=== PATIENT | female | born 1985 | race African-American/Black ===

== ENCOUNTER 2016-04-20 08:25 | Emergency (ER) | payer SELFPAY ==
[2016-04-20] MEDS ORDERED: Tetan/Diph/Pertus SYR(Tdap)* 0.5 ML SYR(BOOSTRIX) use SYR IM ONE (08:48)
[2016-04-20] MEDS ORDERED: Ibuprofen TAB* 600 MG PO ONE (08:49)
--- NOTE | 2016-04-20 09:11 | ED ---
Skin Complaint - HPI Summary HPI Summary: Pt here w/ Rt hand laceration prior to arrival. Was washing dishes when a glass cracked - she didn't realize it at first and continued to over her hand within the glass cup and she cut the skin over Rt 5th knuckle. Bleeding eventually controlled with pressure. Denies numbness, tingling, weakness. Not sure when she had her last tetanus imm. - History of Current Complaint Chief Complaint: EDExtremityUpper Time Seen by Provider: 04/20/16 08:41 Stated Complaint: RT HAND LAC Hx Obtained From: Patient Pain Intensity: 7 - Allergy/Home Medications Allergies/Adverse Reactions: Allergies Allergy/AdvReac Type Severity Reaction Status Date / Time No Known Allergies Allergy Verified 04/20/16 08:32 PMH/Surg Hx/FS Hx/Imm Hx Previously Healthy: Yes Endocrine/Hematology History: Denies: Hx Anticoagulant Therapy, Hx Blood Disorders, Hx Diabetes Cardiovascular History: Denies: Hx Hypertension History: Denies: Hx Renal Disease Sensory History: Denies: Hx Contacts or Glasses Opthamlomology History: Denies: Hx Contacts or Glasses Infectious Disease History: No Infectious Disease History: Denies: Traveled Outside the [place] in Last 30 Days - Family History Known Family History: Positive: Diabetes - sister - Social History Occupation: Employed Part-time - [employer] Lives: With Family - children Alcohol Use: Occasionally Alcohol Amount: Holidays primarily Hx Substance Use: No Substance Use Type: Reports: None Hx Tobacco Use: No Smoking Status (MU): Never Smoked Tobacco Review of Systems Negative: Fatigue Negative: Chest Pain Negative: Shortness Of Breath Gastrointestinal: Negative Positive: no symptoms reported Musculoskeletal: Negative Skin: Other - see HPI Neurological: Negative Psychological: Normal All Other Systems Reviewed And Are Negative: Yes Physical Exam Triage Information Reviewed: Yes Vital Signs On Initial Exam: Initial Vitals Temp Pulse Resp BP Pulse Ox 98.3 F 63 16 122/76 100 04/20/16 08:28 04/20/16 08:28 04/20/16 08:28 04/20/16 08:28 04/20/16 08:28 Vital Signs Reviewed: Yes Appearance: Positive: Well-Appearing, No Pain Distress, Obese Skin: Positive: Warm - dime sized avulsion of dermis over dorsal Rt 5th MCP joint - no active bleeding, no FB - appears clean Head/Face: Positive: Normal Head/Face Inspection Eyes: Positive: Normal, EOMI. Negative: Conjunctiva Inflammed, Discharge ENT: Positive: Hearing grossly normal, Pharynx normal - mucosa moist Respiratory/Lung Sounds: Positive: Breath Sounds Present Cardiovascular: Positive: Normal, Pulses are Symmetrical in both Upper and Lower Extremities Musculoskeletal: Positive: Normal, Strength/ROM Intact Neurological: Positive: Normal, Sensory/Motor Intact, Alert, Oriented to Person Place, Time, CN Intact II-III Psychiatric: Positive: Normal Diagnostics - Vital Signs Vital Signs Temp Pulse Resp BP Pulse Ox 04/20/16 08:28 98.3 F 63 16 122/76 100 - Laboratory Lab Statement: Any lab studies that have been ordered have been reviewed, and results considered in the medical decision making process. Course/Dx - Diagnoses Provider Diagnoses: Avulsion of skin of right hand Discharge - Discharge Plan Condition: Stable Disposition: HOME Patient Education Materials: Skin Avulsion (ED) Additional Instructions: Gently wash wound with soap and water daily - rinse well and pat dry with clean cloth then redress with antibacterial ointment and gauze. Rest, elevate, ice and may take ibuprofen with food for pain Follow-up with PCP next week for wound check - call today to schedule appointment. If you are concerned about healing, you may benefit from a plastic surgery/hand specialist consult - your PCP may refer you as needed. *If you develop redness, drainage, swelling, streaking, purulent drainage, fever , chills, seek medical treatment sooner
[2016-04-20 09:54] VITALS: BP 122/67
== END 2016-04-20 09:15 | disposition home or self-care (01) ==
LOC: ED 08:25
DX: S61.411A Laceration without foreign body of right hand, initial encounter (principal); W25.XXXA Contact with sharp glass, initial encounter; Y93.9 Activity, unspecified; Y92.9 Unspecified place or not applicable; Y99.9 Unspecified external cause status
CPT/HCPCS: 90471; 90715; 99283; A9270-GY

== ENCOUNTER 2016-04-22 16:58 | Emergency (ER) | payer SELFPAY ==
[2016-04-22 17:35] VITALS: BP 126/79
--- NOTE | 2016-04-22 17:59 | UC ---
Skin Complaint HPI - HPI Summary HPI Summary: 30 year old female with complaints of right hand wound. She received a skin avulsion to her right 5th dorsal mcp area 04/20/16. SHe has been taking care of the wound but was supposed to go to work this evening and does not feel comfortable with her job responsibilities of [employer] with the open wound she has to her hand. It is still causing her pain to move her hand and she is right handed. she is unsure if she can pull a glove over her hand while keeping her dressing intact. She would like a work note for the weekend. She denies fever, chills, increased redness or pain. - History of Current Complaint Chief Complaint: UCWounds Time Seen by Provider: 04/22/16 17:43 Stated Complaint: repaired lac wants work note Hx Obtained From: Patient Hx Last Menstrual Period: 04/15/16 ?: No Onset/Duration: Sudden Onset, Lasting Days - 2, Still Present Timing: Intermittent Episodes Lasting: - with movement Onset Severity: Severe Current Severity: Mild Location: Discrete - right hand Character: Pain Aggravating: Touch Alleviating: Nothing Associated Signs & Symptoms: Positive: Tenderness - mild to moderate. Negative : Fever, Chills, Drainage, Bruising Related History: Other: - cut her hand on a broken glass - Allergy/Home Medications Allergies/Adverse Reactions: Allergies Allergy/AdvReac Type Severity Reaction Status Date / Time No Known Allergies Allergy Verified 04/22/16 17:35 Home Medications: Home Medications NK [No Home Medications Reported] 04/22/16 [History Confirmed 04/22/16] Review of Systems Constitutional: Negative Skin: Other - cut to right hand Eyes: Negative ENT: Negative Respiratory: Negative Cardiovascular: Negative Gastrointestinal: Negative Genitourinary: Negative Motor: Decreased ROM - due to acute pain of wound Neurovascular: Negative Musculoskeletal: Negative Neurological: Negative Psychological: Negative All Other Systems Reviewed And Are Negative: Yes PMH/Surg Hx/FS Hx/Imm Hx Previously Healthy: Yes Endocrine History Of: Denies: Diabetes Cardiovascular History Of: Denies: Hypertension GI/ History Of: Denies: Renal Disease Other History Of: Negative For: Anticoagulant Therapy - Surgical History Surgical History: None - Family History Known Family History: Positive: Hypertension - sister, Diabetes - sister - Social History Occupation: Employed Full-time Lives: With Family Alcohol Use: Occasionally Alcohol Amount: Holidays primarily Substance Use Type: None Smoking Status (MU): Never Smoked Tobacco - Immunization History Most Recent Tetanus Shot: 04/20/16 Physical Exam Triage Information Reviewed: Yes Appearance: Well-Appearing, Well-Nourished, Pain Distress - while taking off the dressing to her wound Vital Signs: Initial Vital Signs Temp 97.6 F 04/22/16 17:32 Pulse 62 04/22/16 17:32 Resp 16 04/22/16 17:32 BP 126/79 04/22/16 17:32 Pulse Ox 98 04/22/16 17:32 Vital Signs Reviewed: Yes Eyes: Positive: Conjunctiva Clear. Negative: Discharge ENT: Positive: Hearing grossly normal. 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 The wound is granulating and has pink and white tissue. NO bleeding noted. NO drainaged noted. NO swelling or erythema noted. ROM limited at Right 5th mcp joint due to pain from wound. Negative: rashes Course/Dx - Course Course Of Treatment: Dressing change. Work release for 2 additional days. She is encouraged to follow up with her primary care - Diagnoses Provider Diagnoses: avulsion of skin dorsal right hand Discharge - Discharge Plan Condition: Stable Disposition: HOME Patient Education Materials: Skin Avulsion (ED) Forms: *Work Release Referrals: No Primary Care Phys,NOPCP [Primary Care Provider] - [facility] [place] [facility] [Outside]
[2016-04-22] MEDS ORDERED: Ibuprofen TAB* 600 MG PO ONE (18:14)
== END 2016-04-22 18:19 | disposition home or self-care (01) ==
LOC: UCEAST 16:58
DX: S61.401A Unspecified open wound of right hand, initial encounter (principal); X58.XXXA Exposure to other specified factors, initial encounter; Y92.9 Unspecified place or not applicable
CPT/HCPCS: 99212; A9270-GY; G0463

== ENCOUNTER 2017-01-29 13:15 | Emergency (ER) | payer SELFPAY ==
[2017-01-29 13:42] VITALS: BP 112/57
[2017-01-29] MEDS ORDERED: Ondansetron ODT TAB* 4 MG PO ONE ×2 (13:57→14:10)
[2017-01-29] MEDS ORDERED: Ketorolac INJ* 30 MG/ML 1 ML VIAL IM ONE (13:57)
--- NOTE | 2017-01-29 14:07 | UC ---
Headache HPI - HPI Summary HPI Summary: Started feeling frontal head pain and pressure 3 days ago. Improved with mucinex 2 days ago, lots of rest yesterday, but today feels the worst. Sx are exacerbated by bending over and coughing. Pt denies ST, chest congestion, or sneezing/head congestion aside from forehead pressure. No fever or visual changes, no n/v/d. Has school-aged kids at home. - History Of Current Complaint Chief Complaint: UCHeadache Stated Complaint: HEADACHE Time Seen by Provider: 01/29/17 13:43 Hx Obtained From: Patient Hx Last Menstrual Period: 01/03/17 ?: No Onset/Duration: Gradual Onset, Lasting Days Onset Of Symptoms: Gradual Currently Pain Is: Severe Timing: Constant Character: Dull, Pressure Location of Headache: Frontal Aggravating Factor(s): Exertion, Position Change, Other - cough, sneeze Allevating Factor(s): Rest Associated Signs And Symptoms: Negative: Seizure, Nausea, Vomiting, Fever, Decreased LOC, Visual Changes - Allergies/Home Medications Allergies/Adverse Reactions: Allergies Allergy/AdvReac Type Severity Reaction Status Date / Time No Known Allergies Allergy Verified 01/29/17 13:37 Home Medications: Home Medications Control 1 tab PO DAILY 01/29/17 [History] PMH/Surg Hx/FS Hx/Imm Hx Previously Healthy: Yes Other History Of: Negative For: Anticoagulant Therapy - Surgical History Surgical History: None - Family History Known Family History: Positive: Hypertension - sister, Diabetes - sister - Social History Occupation: Employed Part-time Lives: With Family Alcohol Use: Occasionally Alcohol Amount: Holidays primarily Substance Use Type: None Smoking Status (MU): Never Smoked Tobacco - Immunization History Most Recent Tetanus Shot: 04/20/16 Review of Systems Constitutional: Negative Skin: Negative Eyes: Negative ENT: Negative Respiratory: Negative Cardiovascular: Negative Gastrointestinal: Negative Genitourinary: Negative Motor: Negative Neurovascular: Negative Musculoskeletal: Negative Neurological: Headache Psychological: Negative Is Patient Immunocompromised?: No All Other Systems Reviewed And Are Negative: Yes Physical Exam Triage Information Reviewed: Yes Appearance: Well-Appearing, No Pain Distress, Well-Nourished Vital Signs: Initial Vital Signs Temp 97.8 F 01/29/17 13:38 Pulse 77 01/29/17 13:38 Resp 16 01/29/17 13:38 BP 112/57 01/29/17 13:38 Pulse Ox 100 01/29/17 13:38 Vital Signs Reviewed: Yes Eye Exam: Normal, Other - PERRL, EOM-I Eyes: Positive: Conjunctiva Clear ENT Exam: Normal ENT: Positive: Normal ENT inspection, Hearing grossly normal, Pharynx normal, TMs normal Dental Exam: Normal Neck exam: Normal Neck: Positive: Supple, Nontender, No Lymphadenopathy Respiratory Exam: Normal Respiratory: Positive: Chest non-tender, Lungs clear, Normal breath sounds, No respiratory distress, No accessory muscle use Cardiovascular Exam: Normal Cardiovascular: Positive: RRR, No Murmur Musculoskeletal Exam: Normal Musculoskeletal: Positive: Strength Intact, ROM Intact Neurological: Positive: Alert, Muscle Tone Normal Psychological Exam: Normal Skin Exam: Normal Headache Course/Dx - Differential Dx/Diagnosis Provider Diagnoses: Tension BETTS Discharge - Discharge Plan Condition: Stable Disposition: HOME Prescriptions: Ketorolac TAB * [Toradol TAB *] 10 mg PO TID #4 tab Ondansetron TAB* [Zofran 4 MG Tab*] 4 mg PO Q6H PRN #10 tab PRN Reason: Nausea Patient Education Materials: Tension Headache (ED) Forms: *Work Release Referrals: No Primary Care Phys,NOPCP [Primary Care Provider] - Additional Instructions: As we discussed, either the recent weather change or a mild passing virus can cause severe headaches like this. If you continue to have pain and develop fever , trouble breathing, visual changes, prolonged vomiting, or other severe symptoms, please go to the emergency department.
== END 2017-01-29 14:15 | disposition home or self-care (01) ==
LOC: UCEAST 13:15
DX: G44.209 Tension-type headache, unspecified, not intractable (principal)
CPT/HCPCS: 96372; 99212; A9270-GY; G0463; J1885

== ENCOUNTER 2018-02-13 19:28 | Emergency (ER) | payer OTHER ==
[2018-02-13 19:42] VITALS: BP 106/74
[2018-02-13] MEDS ORDERED: Ibuprofen TAB* 600 MG PO ONE (19:48)
--- NOTE | 2018-02-13 19:51 | UC ---
Knee Pain HPI - HPI Summary HPI Summary: 32 y/o female presents to the urgent care c/o left knee pain s/p injury while playing basketball today around 1830pm. pt reports she jumped and when she landed on her feet she heard a popping sound on her left knee. Pt was able to bear weight w/ limping. Pain is 9/10 sharp w/ movement and walking and 7/10 at rest. Pt applied ice. Pt denies numbness or tingling sensation over the left extremity, calf pain, SOB, chest pain, abdominal pain, N/v/D. - History of Current Complaint Chief Complaint: UCLowerExtremity Stated Complaint: KNEE INJURY Time Seen by Provider: 02/13/18 19:50 Hx Obtained From: Patient Hx Last Menstrual Period: 02/06/18 ?: No Onset/Duration: Gradual Onset, Lasting Hours - 2hrs Severity Initially: Moderate Severity Currently: Moderate Pain Intensity: 9 - walking Pain Scale Used: 0-10 Numeric Character: Sharp Aggravating Factor(s): Movement, Prolonged Standing Alleviating Factor(s): Rest, Cold, OTC Meds Associated Signs And Symptoms: Positive: Negative. Negative: Swelling, Redness , Bruising, Fever, Weakness, Numbness, Tingling Able to Bear Weight: Yes - Risk Factors Septic Arthritis Risk Factor: Negative Gout Risk Factor: Negative - Allergies/Home Medications Allergies/Adverse Reactions: Allergies Allergy/AdvReac Type Severity Reaction Status Date / Time No Known Allergies Allergy Verified 02/13/18 19:42 PMH/Surg Hx/FS Hx/Imm Hx Previously Healthy: Yes - Pt denies PMHX Other History Of: Negative For: Anticoagulant Therapy - Surgical History Surgical History: None - Family History Known Family History: Positive: Hypertension - sister, Diabetes - sister - Social History Occupation: Employed Full-time Lives: With Family Alcohol Use: Occasionally Alcohol Amount: Holidays primarily Substance Use Type: None Smoking Status (MU): Never Smoked Tobacco - Immunization History Most Recent Tetanus Shot: 04/20/16 Review of Systems Constitutional: Negative Skin: Negative Eyes: Negative ENT: Negative Respiratory: Negative Cardiovascular: Negative Gastrointestinal: Negative Genitourinary: Negative Motor: Negative Neurovascular: Negative Musculoskeletal: Decreased ROM - left knee, Other: - left knee pain s/p injury while playing soccer Neurological: Negative Psychological: Negative Is Patient Immunocompromised?: No All Other Systems Reviewed And Are Negative: Yes Physical Exam - Summary Physical Exam Summary: Vital Signs Reviewed: Yes General: well developed, well nourished female sitting in the examining table w/ o any apparent distress Eyes: Positive: Conjunctiva Clear - PERRLA, EOMI, fundi grossly normal ENT: Positive: Normal ENT inspection, Hearing grossly normal, Pharynx normal, TMs normal Neck: Positive: Supple, Nontender, No Lymphadenopathy Respiratory: Positive: Chest nontender, Lungs clear, Normal breath sounds, No respiratory distress Cardiovascular: Positive: RRR, No Murmur, Pulses Normal, Brisk Capillary Refill Abdomen Description: Positive: Nontender, No Organomegaly, Soft. Negative: CVA Tenderness (R), CVA Tenderness (L) Bowel Sounds: Positive: Present Musculoskeletal: Positive: Strength Intact, No Edema, LF Knee: Pt is able to bear weight and ambulate with limping. No surface trauma, soft tissue swelling, or obvious effusion. No overlying erythema or warmth. The L knee is without obvious asymmetry or deformity when compared with the R knee. Decreased ROM of LF knee due to pain. No tenderness to palpation of the patella, no effusion or ballottement. No tenderness over the infrapatellar tendon. Point tenderness over the medial joint line, No tenderness over the lateral tibial plateaus. No tenderness over the proximal fibular head, No tenderness, fullness or mass of the popliteal fossa. No quadriceps tenderness. No laxity of the ACL. PCL, MCL, or LCL. no collateral ligament laxity to valgus or varus stress. Negative Lucy/Drawer sign. Negative Giacomo. Distal motor and neurovascular status intact. Neurological Exam: Normal Psychological Exam: Normal Skin Exam: Normal Triage Information Reviewed: Yes Vital Signs: Initial Vital Signs Temp 97.8 F 02/13/18 19:38 Pulse 76 02/13/18 19:38 Resp 16 02/13/18 19:38 BP 106/74 02/13/18 19:38 Pulse Ox 100 02/13/18 19:38 Knee Pain Course/Dx - Course Course Of Treatment: 32 y/o female presents to the urgent care c/o left knee pain s/p injury while playing basketball today around 1830pm. pt reports she jumped and when she landed on her feet she heard a popping sound on her left knee. Pt was able to bear weight w/ limping. Pain is 9/10 sharp w/ movement and walking and 7/10 at rest. Pt applied ice. Pt denies numbness or tingling sensation over the left extremity, calf pain, SOB, chest pain, abdominal pain, N /v/D. Hx obtained. LF knee X-ray ordered. Impression:No acute osseous injury observed. Pt explained final radiology reading will be tomorrow. Pt probably w/ probably a left knee sprain. Pt's knee immobilized w/ a knee immobilizer. and Advised to use crutches for 1 week to avoid weaith bearing until she sees Orthopedic DR Molina for further evaluation and treatment. However she declined to use the crutches. Advised RICE. Strongly advised to avoid strenuous exercise or standing for long period of time. Pt stated she can't miss training at work. Pt strongly recommended not to do any weight bearing until she sees Orthopedic DR Molina who can clear her to return to work. D/c instructions explained. PT understood and agreed with D/C instructions. - Differential Dx/Diagnosis Differential Diagnosis/HQI/PQRI: Contusion, Dislocation, Fracture (Closed), Sprain, Strain, Tendonitis Provider Diagnoses: 1-Acute left knee pain s/p injury. 2-left knee sprain Discharge - Sign-Out/Discharge Documenting (check all that apply): Patient Departure - D/c home All imaging exams completed and their final reports reviewed: No - Discharge Plan Condition: Stable Disposition: HOME Prescriptions: Ibuprofen TAB* [Motrin TAB* 800 MG] 800 mg PO Q6H PRN #30 tab PRN Reason: Pain Patient Education Materials: Knee Sprain (ED) Forms: *Work Release Referrals: [facility] [place] [facility] [Outside] - 1 Week Lamont Molina MD [Medical Doctor] - 2 Days Additional Instructions: 1-Please take medications as directed to alleviate pain and swelling. 2-Please apply ice, keep your knee immobilized with the splint. Avoid strenuous exercise or weight bearing w/ crutches 3- Please f/u with Orthopedic Dr Molina in 2-3 days for further evaluation and treatment. - Billing Disposition and Condition Condition: STABLE Disposition: Home
--- NOTE | 2018-02-14 07:59 | RAD ---
Indication: Left knee injury. 4 views of left knee demonstrates no fracture or dislocation. No other bone or joint abnormality is identified. IMPRESSION: No fracture of the left knee is noted. R0
== END 2018-02-13 21:02 | disposition home or self-care (01) ==
LOC: UCEAST 19:28
DX: S83.92XA Sprain of unspecified site of left knee, initial encounter (principal); X58.XXXA Exposure to other specified factors, initial encounter; Y93.67 Activity, basketball; Y92.310 Basketball court as the place of occurrence of the external cause
CPT/HCPCS: 99213; A9270-GY; G0463

== ENCOUNTER 2018-05-10 05:39 | Day surgery (SDC) | payer OTHER ==
--- NOTE | 2018-05-07 14:14 | HP ---
H&P (Free Text) History and Physical: [facility] PENELOPE MOLINA MD [address] [place] [id number] [phone] HISTORY & PHYSICAL Date of Visit: May 02, 2018 Patient Name: Farzaneh Mckinney : 1985 Gender: female Age: 32 years Primary Care Physician: Patient'S Choice Reason for Visit: L Knee- H & P CC: Left knee pain. 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 The patient injured her knee while playing basketball with children at work on February 13. She underwent an MRI on February 25, 2018, which showed a complete versus high grade partial tear of the ACL ligament. She has elected to undergo arthroscopic ACL reconstruction with hamstring allograft with Dr. Molina on 05/10/2018. PAST MEDICAL HISTORY: None. PAST SURGICAL HISTORY: D&C. CURRENT MEDICATIONS: None. ALLERGIES: No known drug allergies. FAMILY HISTORY: Positive for diabetes. SOCIAL HISTORY: Nonsmoker. Rare alcohol intake. Lives alone with her 2 children, ages 10 and 13. Enjoys exercise. ROS: Negative for headache, shortness of breath, chest pain, heart palpitations , abdominal pain, numbness and tingling, other muscles aches or pain, difficulty with wound healing, bleeding disorders blood clots, diabetes or thyroid disease, cough, COPD, asthma, weight gain or loss. PHYSICAL EXAM: Vitals: Ht: 64" Wt: 200lb BP: 115/72 Resp: 18 Pain Level: 3 BMI: 34.3 GENERAL: Well appearing, no acute distress. Alert and oriented, appropriate mood and affect. Nonantalgic gait. CARDIAC: Regular rate and rhythm. No murmurs, gallops or rubs. RESPIRATORY: Clear to auscultation bilaterally. No crackles, rhonchi, or wheezes. ABDOMEN: Soft, nontender, nondistended. No CVA tenderness bilaterally. HEENT: Normocephalic, atraumatic. Trachea midline. LEFT LOWER EXTREMITY: Left knee with no effusion. No bruising, open wounds or sores. Passive range of motion -2 to 145 degrees, similar to right side. Mild anterior drawer. Mild Lucy. Negative Giacomo's. Negative laxity with valgus or varus stresses. No joint line tenderness bilaterally. IMAGING: MRI on February 25, 2018, which showed a complete versus high grade partial tear of the ACL ligament. ASSESSMENT: ACL tear, left knee. PLAN: 1. Arthroscopic ACL reconstruction with hamstring autograft on 05/10/2018. 2. As the patient is healthy, no other history and physical examination is required. 3. The patient will recover at home. 4. The patient has physical therapy currently at [facility] and will continue there postoperatively. Meds Prior to Visit: No Active Medications Allergies: No Known Drug Allergy Problem List: Date: 05/02/2018 Was the patient queried about smoking behavior? Yes No Does the patient currently smoke? Smoking: Patient has never smoked. Vitals: Ht: 64" Wt: 200lb BP: 115/72 Resp: 18 Pain Level: 3 BMI: 34.3
[~2018-05-10 05:39] MED LIST: Buffered Lidocaine 1% SYRIN* 1 ML/SYRINGE INTRADERM ONE
[2018-05-10] MEDS ORDERED: Famotidine IV* 10 MG/ML 2 ML (20 mg) ONE (05:58)
[2018-05-10] MEDS ORDERED: Buffered Lidocaine 1% SYRIN* 1 ML/SYRINGE INTRADERM ONE (05:58)
[2018-05-10] MEDS ORDERED: Dexamethasone IV* 4 MG/ML 1 ML (4 MG) ONE (05:58)
[2018-05-10] MEDS ORDERED: ceFAZolin 2 GM PREMIX in ORs 2 GM/50 ML BAG IVPB ONE (05:58)
[2018-05-10] MEDS ORDERED: Famotidine IV* 10 MG/ML 2 ML (20 mg) IV ONE (06:00)
[2018-05-10] MEDS ORDERED: Lactated Ringers 1000 ML Bag* 1,000 ML IV SCH (06:00)
[2018-05-10] MEDS ORDERED: Dexamethasone IV* 4 MG/ML 1 ML (4 MG) IV SLOW PU ONE (06:00)
[2018-05-10] MEDS ORDERED: EPINEPHRINE 1 MG/ML 1 ML VIAL ONE (06:53)
[2018-05-10] MEDS ORDERED: Bupivacaine 0.5% W/EPI SDV* 30 ML VIAL ONE (06:53)
[2018-05-10] MEDS ORDERED: Midazolam* 1 MG/ML 5 ML VIAL (5 MG) ONE (07:10)
[2018-05-10] MEDS ORDERED: fentaNYL* 50 MCG/ML 5 ML VIAL (250 MCG VIAL) ONE (07:10)
[2018-05-10] MEDS ORDERED: Ondansetron INJ* 2 MG/ML VIAL ONE ×2 (07:10→14:07)
[2018-05-10] MEDS ORDERED: Ketorolac INJ* 30 MG/ML 1 ML VIAL ONE (07:10)
[2018-05-10] MEDS ORDERED: Propofol* 10 MG/ML 20 ML BTL ONE (07:10)
[2018-05-10] MEDS ORDERED: Lidocaine 2% PF * 5 ML VIAL ONE (07:10)
[2018-05-10] MEDS ORDERED: Atracurium* 10 MG/ML 10 ML VIAL ONE (07:10)
[2018-05-10] MEDS ORDERED: fentaNYL* 50 MCG/ML 2 ML VIAL (100 MCG VIAL) ONE ×4 (07:54→11:54)
[2018-05-10] MEDS ORDERED: EPHEDrine (Pressors)* 50 MG/ML VIAL ONE (07:57)
[2018-05-10] MEDS ORDERED: Ondansetron INJ* 2 MG/ML VIAL IV PRN (08:22)
[2018-05-10] MEDS ORDERED: Scopolamine 1.5 mg* PATCH TRANSDERM PRN (08:22)
[2018-05-10] MEDS ORDERED: Naloxone* 0.4 MG/ML 1 ML VIAL IV PRN (08:22)
[2018-05-10] MEDS ORDERED: DiMENhydriNATE IV* 50 MG/ML VIAL IV PUSH PRN (08:22)
[2018-05-10] MEDS ORDERED: oxyCODONE/Acetamin 5/325 MG* TAB PO PRN (08:22)
[2018-05-10] MEDS ORDERED: Mineral Oil Sterile, TOPICAL* 25 ML BTL ONE (09:17)
[2018-05-10] MEDS: fentaNYL* 50 MCG/ML 2 ML VIAL (100 MCG VIAL) IV PRN ×2 (11:56→12:22)
[2018-05-10] MEDS ORDERED: oxyCODONE/Acetamin 5/325 MG* TAB ONE ×2 (13:06→13:36)
[2018-05-10] MEDS ORDERED: HYDROmorphone INJ1* 1 MG/ML SYRINGE ONE (13:12)
[2018-05-10] MEDS: HYDROmorphone INJ1* 1 MG/ML SYRINGE IV PRN ×5 (13:13→13:35)
[2018-05-10 13:52] VITALS: BP 130/76
[2018-05-10] MEDS ORDERED: Scopolamine 1.5 mg* PATCH ONE (14:07)
[2018-05-10] MEDS ORDERED: DiMENhydriNATE IV* 50 MG/ML VIAL ONE (15:44)
--- NOTE | 2018-05-12 23:47 | OP ---
DATE OF OPERATION: 05/10/18 - [facility] DATE OF : 89 SURGEON: Lamont Molina MD ASSISTANTS: 1. GAYLA Eaton 2. Julissa Felton. Physician post production assistant was required for assistance with positioning, retraction, instrumentation, knee manipulation, and closure. ANESTHESIOLOGIST: Dr. Chapito Scott. ANESTHESIA: General anesthesia, local anesthesia with 30 cc of Marcaine, 0.5% with epinephrine. PRE-OP DIAGNOSIS: Left knee anterior cruciate ligament tear. POST-OP DIAGNOSIS: Left knee anterior cruciate ligament tear. OPERATIVE PROCEDURE: Arthroscopic left knee anterior cruciate ligament reconstruction with hamstring autograft and allograft. ANTIBIOTICS: 2 g Ancef IV. IV FLUIDS: See anesthesia note. TOURNIQUET TIME: 120 minutes at 300 mmHg. WVDI-BR-GBNV TIME: 169 minutes. ARTHROSCOPY FLUID UTILIZED: Unknown. RADIATION EXPOSURE: A mini C-arm was utilized for several radiographs. SPECIMEN: None. IMPLANTS: One hamstring allograft was utilized, a semitendinosus tendon. A Mitek RIGIDLOOP suspensory fixation was used on the femur. A Synthes large fragment 4.5 mm fully-threaded screw and washer were used as fixation on the tibia. The graft utilized combined the gracilis and semitendinosus of the patient as well as semitendinosus from a cadaver. COMPLICATIONS: None. ESTIMATED BLOOD LOSS: Minimal. 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 MRI showed high-grade ACL injury and the patient opted for ACL reconstruction. I spoke to the patient about the universe of different graft options. She chose hamstring autograft. I spoke to the patient about how I would have allograft available as backup as sometimes especially in woman, they do not have sufficient volume of autograft to make a good graft with the Hamstrings. The patient was fine with that. I discussed risks and potentials complications of surgery as well as postoperative recovery and limitations. DESCRIPTION OF PROCEDURE: Preoperative written consent was signed. Operative extremity was marked in preoperative holding. The patient was taken back to the operating room and placed supine on the operating room table. Tourniquet was placed high on the left proximal thigh. A collapsible lateral post was placed along the table. The patient was sedated and intubated. Left lower extremity was prepped and draped. Surgical time-out was performed. Esmarch was applied and tourniquet was elevated to 300 mmHg. I established a left knee anterolateral knee arthroscopy portal. I started by diagnostic arthroscopy. There was some inflamed tissue anteriorly, but no articular cartilage damage in the patellofemoral compartment. Medial and lateral compartment showed no articular cartilage or meniscus injury. Evaluation of the intracondylar notch demonstrated a complete or nearly complete tear of the ACL proximally. The remnant of the ACL had scarred down to the PCL more inferiorly. I placed the [facility] knee positioning system on the table and removed the lateral post. This was to prepare for the hamstring tendon harvest. I made a longitudinal skin incision over the anteromedial proximal lower leg. I dissected down to the sartorius fascia. I incised this parallel to the gracilis and semitendinosus tendons that I had palpated prior to incising the sartorius fascia. I next freed up all of the connections, fibrous using blunt safe dissection with my fingers to the two tendons. I next used a tendon stripper to remove these tendons. I examined the gracilis and semitendinosus tendons on the back table. Both were rather small in volume. I dropped a tourniquet on the patient's leg. I prepared the grafts that were approximately 200 mm long so that there would be 100 mm long folded over. I whipstitched using #2 FiberWire and #2 Orthocord along the distal 3 cm of each end of each tendon. After the grafts have been prepped, I incised them. I incised these grafts to be appropriate for a 7.5 tunnel or maybe even a 7 tunnel. As there is literature that supports the advantage of size 8 and above grafts, I made the decision to add some allograft tissue. I had the allograft that was in the room sawed. I raised the tourniquet to expecting to do more work in the knee but found that the allograft tissue was almost immediately ready to be prepped and so I went immediately back to the back table. I prepped this semitendinosus allograft in the same manner. Putting all three tendons together, I measured the graft to be appropriate for size 11 mm tunnels. I placed multiple running stitches using Vicryl 2-0 suture to hold the three strands of tendon, folded over, in place after they had been looped through the RIGIDLOOP system. I held this graft on the back table. I next returned to the knee. I re-elevated the tourniquet. I debrided the intracondylar notch, performed notchplasty. Using my standard anatomic landmarks, I then drilled a 11 mm tunnel. This was in excellent position within a millimeter or less of the back wall, posterior wall of the femur. I drilled this tunnel with the knee hyperflexed. I next returned the knee to 90 degrees of flexion and using a tibial ACL guide set at 55 degrees, I placed a pin and then drilled in 11 mm tibial tunnel. I liked my tunnel positions. I passed a passing suture. I then placed my graft. I had premarked the graft and then went to flip my femoral button. I flipped the button. I brought mini C-arm in to confirm that the button was flipped close to the cortex of the femur rather than superficial to the iliotibial band, which was of concern and why we obtained radiographs. It was closed to right directly on the bone. I should note that I could also visualize the undersurface of the metal anchor through the aperture of the bone while viewing from inside the knee even before and after I obtained radiographs. I next pulled the graft up into the femoral tunnel using the white suture. My graft length was excellent. The tendons just came out of the distal end of the tibial tunnel. They filled the tunnel nicely. I decided to fix distally with the screw and washer. With the knee in full extension and a posterior drawer applied, I tightened each one of my three strands around a post and washer and tied a knot. It should be noted that I placed a 36 mm x 4.5 mm screw after having drilled it. I used mini C-arm to confirm the appropriate length of this screw. After having tied all these knots with the sutures, I then again pulled on the sutures with another posterior drawer maneuver and tightened the screw and washer all the way down to the tibial cortex. I examined the knee. No laxity whatsoever at the ACL. Very happy with the result. I stuck my arthroscope within the knee and confirmed excellent size and positioning of the ACL graft. I closed the distal incision with deep and superficial buried simple stitches using Vicryl 2-0 suture. The long distal incision was closed with a subcuticular stitch using Monocryl 4-0 suture in a running fashion. Mastisol and then Steri-Strips to the distal incision. The arthroscopic skin incisions were closed with figure-of- eight and 12 stitches using nylon and 3-0 sutures. The tourniquet had been dropped at 120 minutes. Local anesthetic was applied into the subcutaneous tissues about the skin incision. Xeroform, 4x4s, ABDs, sterile Webril, MISTY bandage from foot to proximal thigh. Cooling unit. Knee brace locked in extension. DISPOSITION: The patient was awakened, extubated, and brought to the PACU. Wound care instructions provided. The patient was written prescriptions for Percocet p.r.n. pain, Keflex for 3 days and aspirin x2 weeks. She will follow up with me in clinic 10 to 14 days postoperative. She will begin physical therapy immediately and she already has a PT appointment. [id number]/CPS #: [id number] MTDD
== END 2018-05-10 16:25 | disposition home or self-care (01) ==
LOC: OR 05:39
PROVIDERS: ATTEND Orthopaedic Surgery
DX: S83.512A Sprain of anterior cruciate ligament of left knee, initial encounter (principal); X50.0XXA Overexertion from strenuous movement or load, initial encounter; Y93.89 Activity, other specified; Y92.158 Other place in reform school as the place of occurrence of the external cause; Y99.0 Civilian activity done for income or pay
CPT/HCPCS: 81025; A9270-GY; C1713; C1776; J0690; J1100; J1170; J1240; J1885; J2250; J2405; J2704; J3010

== ENCOUNTER 2018-07-31 08:22 | Emergency (ER) | payer OTHER ==
[2018-07-31 08:35] VITALS: BP 110/76
--- NOTE | 2018-07-31 09:02 | UC ---
General HPI - HPI Summary HPI Summary: Started with a sore throat yesterday. THen began with cough and congestion. TOok NyQuil last night that did help with the cough. No fever. No rash. No N/ V/D. No CP or SOB. Out on workers comp currently. meds: Reviewed No fever - History of Current Complaint Chief Complaint: UCGeneralIllness Stated Complaint: SORE THROAT Time Seen by Provider: 07/31/18 08:56 Hx Last Menstrual Period: July 08 Pain Intensity: 8 - Allergy/Home Medications Allergies/Adverse Reactions: Allergies Allergy/AdvReac Type Severity Reaction Status Date / Time No Known Allergies Allergy Verified 07/31/18 08:35 Home Medications: Home Medications Dm/Acetaminophen/Doxylamine [Night Cold-Flu Relief Liq Gel] 1 dose PO BEDTIME PRN 07/31/18 [History Confirmed 07/31/18] PMH/Surg Hx/FS Hx/Imm Hx Previously Healthy: Yes Other History Of: Negative For: Anticoagulant Therapy - Surgical History Surgical History: Yes Surgery Procedure, Year, and Place: D&C. left ACL repair Apr 2018 - Family History Known Family History: Positive: Hypertension - sister, Diabetes - sister - Social History Alcohol Use: Occasionally Alcohol Amount: Holidays primarily Substance Use Type: None Smoking Status (MU): Never Smoked Tobacco - Immunization History Most Recent Tetanus Shot: 04/20/16 Review of Systems All Other Systems Reviewed And Are Negative: Yes Constitutional: Positive: Negative ENT: Positive: Sore Throat, Nasal Discharge Respiratory: Positive: Cough Physical Exam Triage Information Reviewed: Yes Appearance: Well-Appearing Vital Signs: Initial Vital Signs Temp 98.7 F 07/31/18 08:30 Pulse 83 07/31/18 08:30 Resp 14 07/31/18 08:30 BP 110/76 07/31/18 08:30 Pulse Ox 98 07/31/18 08:30 Eyes: Positive: Conjunctiva Clear ENT: Positive: Pharyngeal erythema, TMs normal, Tonsillar swelling Neck: Positive: Supple, Tenderness @ - anterior cervical chain Respiratory: Positive: Chest non-tender, Normal breath sounds Cardiovascular: Positive: RRR, No Murmur Course/Dx - Course Course Of Treatment: This is a 32 yr old with sore throat and URI symptoms Rapid strep: Positive Plan Start Amoxicillin as prescribed Continue to drink plenty of fluids Can use ibuprofen as needed for pain/fever If symptoms persist or worsen, recommend follow up with PCP or return to urgent care - Diagnoses Provider Diagnosis: Pharyngitis due to group A beta hemolytic Streptococci Discharge - Sign-Out/Discharge Documenting (check all that apply): Patient Departure All imaging exams completed and their final reports reviewed: No Studies - Discharge Plan Condition: Good Disposition: HOME Prescriptions: Amoxicillin PO (*) [Amoxicillin 500 MG CAP*] 500 mg PO Q12H #20 cap Patient Education Materials: Strep Throat (ED) Referrals: No Primary Care Phys,NOPCP [Primary Care Provider] - Additional Instructions: Start Amoxicillin as prescribed Continue to drink plenty of fluids Can use ibuprofen as needed for pain/fever If symptoms persist or worsen, recommend follow up with PCP or return to urgent care - Billing Disposition and Condition Condition: GOOD Disposition: Home
== END 2018-07-31 09:19 | disposition home or self-care (01) ==
LOC: UCEAST 08:22
DX: J02.0 Streptococcal pharyngitis (principal); R05 Cough; J34.89 Other specified disorders of nose and nasal sinuses
CPT/HCPCS: 87651; 99212; G0463

== ENCOUNTER 2019-05-26 09:22 | Emergency (ER) | payer OTHER ==
--- OUTSIDE RECORDS SUMMARY | 2019-05-26 09:34 | XMS REPORT | Continuity of Care Document ---
:1985 Author Organization [facility] Address [address] [place] [address] Phone Care Team Providers Name Role Phone Mini Huitron NP Unavailable Unavailable Allergies, Adverse Reactions, Alerts Substance Reaction Status No Known Allergies Active Medications Medication Instructions Dosage Effective Dates Status Comments (start - stop) azithromycin 500 mg 2 tabs po x 1 for - Active tablet infection metronidazole 500 mg 1 tab po bid x 7d - No Longer tablet (#14) Active Problems Condition Effective Dates (start - Clinical Status Comments stop) Encounter for surveillance of contraceptive pills Encntr screen for infections w sexl mode of transmiss Human immunodeficiency virus [HIV] - counseling Encounter for screening for human - immunodeficiency virus Acute vaginitis Encntr screen for infections w sexl mode of transmiss Acute vaginitis Encounter for screening for human - immunodeficiency virus Human immunodeficiency virus [HIV] - counseling Encounter for test, result negative Encounter for test, result negative Encounter for initial prescription of contraceptive pills Encntr screen for infections w sexl mode of transmiss Acute vaginitis Encounter for oth general cnsl and advice on contraception Encntr screen for infections w sexl mode of transmiss Candidiasis of vulva and vagina Encntr screen for infections w sexl mode of transmiss Encounter for prescription of emergency contraception Encounter for initial prescription of contraceptive pills Acute vaginitis Anemia, unspecified Encntr screen for dis of the bld/bld-form org/immun mechnsm Acute vaginitis Encounter for elective termination of Encounter for initial prescription of contraceptive pills Problems related to unwanted Encounter for test, result positive Weeks of gestation of not specified Encounter for oth general cnsl and advice on contraception Oth cond assoc w female genital organs and menstrual cycle Encntr screen for infections w sexl mode of transmiss Chlamydial infection, unspecified Chlamydial infection, unspecified Encntr screen for infections w sexl mode of transmiss Acute vaginitis PT, Negative PT, Negative BV EC Counseling Or RX OCP, Surveillance PT, Negative OCP, Start Family Planning Counseling STI Screening BV BCM Other, Surveillance BCM Other, Surveillance BV BCM Other, Start Anemia, Screening BV AB W/O Comp, Complete RhD positive - Active Procedures Procedure Date No information Results Test Name Date and Time Measure Units Reference Range Abnormal Flag Status Comments No information Advance Directives Directive Yes / No Effective Date File Name No information Encounters Encounter Practice Location Reason(s) Diagnoses Date Provider Providers Description For Visit Copied on Encounter [facility] Dec- Elana Morse. [facility] [place] [address] [facility], [place], [place], [address], [facility], [address] , [place], [place], [id number], [place] tel:[phone] [facility] Encounter for [facility]. [facility] surveillance of [address] Provider: [address], [facility] [place], [address], [place], [address] [place], [address] screen for [place]. [address] infections w [facility], , [place], [address]. [place], [facility] [id number], immunodeficienc [place] y virus [HIV] tel:[phone] counselingEncou [phone] nter for screening for human immunodeficienc y virusAcute vaginitis [facility] Encntr screen Haja [facility] for infections Kate. [address] Provider: [place] w sexl mode of [address], [place] transmissAcute [place], Haja [facility], 620 vaginitisEncoun [address]. , [address] for tel:[phone] [address], St, [place], [place] [address] [place] [address]. [id number], immunodeficienc tel:[phone] [place] y virusHuman 367041 tel:[phone] immunodeficienc 248973 y virus [HIV] counseling [facility] Encounter for Zach Referring [facility] [place] test, Shirin. Provider: [facility] result negative 8 [address] [address], [place], [place], [place], [address] [place], [address], [address], St, [place], tel:[phone] [place], [address]. [id number], tel:[phone] [place] 359589 tel:[phone] [facility] Encounter for Elana Morse. [facility] [place] test, [address] Southern result 7 , [place], [place], [address], [place], 620 er for initial [place]. [address] [facility] contraceptive [place], pillsEncntr [id number], screen for [place] infections w tel:[phone] sexl mode of [phone] transmissAcute vaginitis [facility] Encounter for Guggino [facility] [place] oth general Shirin. Southern cnsl and advice 6 [address] [place] , [place], [place], [address] [place], [address], [address] cntr screen for [place]. St, [place], infections w tel:[phone] [place] [id number], transmissCandid [place] iasis of vulva tel:[phone] and vagina [phone] [facility] Encntr screen Borglum [facility] [place] for infections Sanjana. [address] w sexl mode of [address], [place] transmissEncoun [place], [place], [address] [place] [address], [place]. [address] prescription of tel:[phone] [facility], emergency [address] [place], contraceptionEn [id number], counter for [place] initial tel:[phone] prescription of [id number] contraceptive pillsAcute vaginitisAnemia , unspecified [facility] Encntr screen Haja Referring [facility] [place] for dis of the Kate. [address] Provider: [facility] bld/bld-form [address], [place] org/immun [place], [place], Eve R [facility], 620 mechnsmAcute [address]. [address] vaginitisEncoun tel:[address], St, [place], [place] [address] [place], [place] [address]. [id number], termination of tel:[phone] [place] pregnancyEncoun 185634 tel:+ ter for initial [phone] prescription of contraceptive pills [facility] Problems Jul- White Mini. [facility] related to [address] Provider: [facility] unwanted [address], [place], [address], [facility]. [facility], [address], [place], [place], [id number], [place] tel:[phone] [facility] Encounter for Parete [facility] test, Hillary. [address] W Provider: [facility] result [address], [place] positiveWeeks [place], [facility]. [facility], 620 [place] [address]. [address] not tel:+7 St, [place], specified [address] [place], [id number], [place] tel:[phone] [facility] Encounter for Kornblum [facility] [place] ot general Mitzy. [address] [place] cnsl and advice [address], [place], [place], 620 contraceptionOt [address]. [address] h cond assoc w tel:+7 St, [place], female genital [address] [place], organs and [id number], menstrual [place] cycleEncntr tel:[phone] screen for [phone] infections w sexl mode of transmiss [facility] Chlamydial Haja [facility] infection, Kate. [address] W Provider: Southern unspecified [address], [place], [facility]. [facility], [facility] [address]. [address] tel:[phone] St, [place], [address] [place], [id number], [place] tel:[phone] [facility] Chlamydial Parete [facility] [place] infection, 4201 Hillary. [address] unspecified [address], [place], [facility], [address] [address]. [address] tel:[phone] St, [place], [address] [place], [id number], [place] tel:[phone] [facility] Encntr screen Raphaelidis [facility] for infections 3-201 Kate. [address] Southern w sexl mode of [address], [place] transmissAcute [place], [place], [facility], [facility] vaginitis [address]. [address] tel:[phone] St, [place], [address] [place], [id number], [place] tel:[phone] [facility] PT, Negative Sep-0 Raphuyenidis Consulting [facility] [place] 2-201 Kate. [address] W Provider: Southern [address], [place], [place], [facility]. [facility], [facility] [address]. [address] tel:[phone] St, [place], [address] [place], [id number], [place] tel:[phone] [facility] PT, Negative Ashish- Perez Erum. Consulting [facility] [place] 0-201 [address] Provider: Southern [address], [place], [place]SE [place] [facility], [address]. [facility]. [facility], [facility] tel:[phone], [place], [place], [id number], [place] tel:[phone] [facility] BVEC Counseling Apr-2 Eliazar [facility] Or RX 8 Mariusz. [address], [place], [place], [facility], [facility] [address], [place]. [address] tel:[phone] St, [place], [address] [place], [id number], [place] tel:[phone] [facility] OCP, Mar-3 [place] [facility] [place] SurveillancePT, 0201 Nura. [address] Negative [address], [place], [facility], [address] [address]. [address] tel:+[phone] St, [place], [address] [place], [id number], [place] tel:[phone] [facility] OCP, [facility] [place] StartFamily 0-201 Sallie. [address] [place] Planning [address], [place] [facility] [place], [facility], 620 ScreeningBV [address]. [address] tel:[phone] St, [place], [address] [place], [id number], [place] tel:[phone] [facility] BCM Other, [facility] Referring [facility] [place] Surveillance [place]. 620 Provider: Southern [address], [place], [place], [facility], [facility], 620 [address]. [address] tel:[phone] [address], St, [place], [address] [place], [address]. [id number], tel:[phone] [place] [phone] tel:[phone] lting [phone] Provider: [place]SE [place] [facility]. [facility] BCM Other, Chris Danielson. Referring [facility] [place] Surveillance [address] Provider: Southern [address], [place], [place], [address]. Perez, 620 [facility], 620 tel:[phone] [address] [address], [place], [place], [place], [address]. [place], tel:[phone], 332[address]Lgarm [place] lting tel:[phone] Provider: [id number] [place]SE [place] [facility]. [facility] BVBCM Other, [facility] Referring [facility] [place] Start 1 Sallie. [address] W Provider: Southern [address], [place], [facility], [facility], 620 [address]. [address] tel:[phone] [address], St, [place], [address] [place], [address]. [id number], tel:[phone] [place] 748384 tel:[phone] [facility] Anemia, [facility] [place] ScreeningBVAB -201 Max. 620 W [facility] W/O Comp, [address], [place] Complete [place], [facility], [address] [address]. [address] tel:+[phone] St, [place], [address] [place], [id number], [place] tel:[phone] [facility] [place] Consulting [facility] [place] [address] Nura. 620 Provider: [facility] [address], [place], [place], [facility]. [facility], [address] [address]. [address] tel:+[phone] St, [place], [address] [place], [id number], [place] tel:[phone] Family History Family Member Diagnosis Age At Onset Sister No history of Myocardial infarction Father No history of Myocardial infarction Mother No history of Stroke Sister No history of Stroke Mother No history of Myocardial infarction No family history of Myocardial infarction Brother No history of Stroke Sister Diabetes mellitus Brother No history of Myocardial infarction Family history of No family history of Stroke Father No history of Stroke Immunizations Vaccine Date Status Comments No information Payers Payer name Insurance type Covered constitution party ID Authorization(s) [facility] CI [id number] Social History Type Description Quantity Date Captured Comments Alcohol Use Details Unknown Caffeine Use Details Unknown Tobacco Use Status Unknown Smoking Status Never smoker Sex Female Vital Signs Date / Height Weight BMI Pulse Blood Temperature Respiratory Body Head BMI Pulse Inhaled Time: Rate Pressure Rate Surface Circumference percentile [place] Area No information Chief Complaint And Reason For Visit No information Reason For Referral Reason For Referral No information Plan Of Treatment Date Type Action Status No information History Of Present Illness Encounter Date Complaint History Of Present Illness No information Functional Status Date Functional Assessment No information Medications Administered Medication Instructions Dosage Effective Dates (start - stop) Status Comments No information Instructions Date Instruction Additional Information No information Assessments Type Assessment Date No information Goals Health Concern Goal Type Priority Status Date No information Medical Equipment Description Device [place] Device Identifier Effective Dates (start - stop ) Status No information Mental Status Date Cognitive Assessment No information Health Concerns Observation Date No information Concern Status Date No information
--- OUTSIDE RECORDS SUMMARY | 2019-05-26 09:34 | XMS REPORT | Continuity of Care Document ---
:1985 External Reference #:[id number] Author Name Ingris Brady MD Address [address] [facility] [place] [address] Problems Description No Information Available Social History Type Date Description Comments Sex Unknown Tobacco Use Start: Unknown Patient has never smoked Smoking Status Reviewed: 04/24/19 Patient has never smoked Allergies, Adverse Reactions, Alerts Description No Known Drug Allergies Medications Description No Active Medications Immunizations Description No Information Available Vital Signs Date Vital Result Comment 04/24/2019 3:48pm BP Systolic 108 mmHg BP Diastolic 74 mmHg Weight 186.00 lb Heart Rate 74 /min Body Temperature 97.4 F O2 % BldC Oximetry 99 % 09/13/2018 9:25am BP Systolic 118 mmHg Weight 203.00 lb Heart Rate 68 /min Body Temperature 96.8 F O2 % BldC Oximetry 98 % Results Test Acquired Date Facility Test Result H/L Range Note Xray 04/24/2019 [facility] Ultrasound Breast <pending> [address] [place], [place] [id number] [phone] Procedures Description No Information Available Medical Devices Description No Information Available Encounters Type Date Location Provider Dx Diagnosis Office Visit 04/24/2019 3:45p [facility] Ingris Brady MD N64.4 Mastodynia Assessments Date Code Description Provider 04/24/2019 N64.4 Mastodynia Ingris Brady MD Plan of Treatment 04/24/2019 - Ingris Brady MDN64.4 MastodyniaAllNew Medication:No Active Medications - Functional Status Description No Information Available Mental Status Description No Information Available Referrals Description No Information Available
[2019-05-26 13:54] VITALS: BP 113/84
--- NOTE | 2019-05-26 17:04 | ED ---
Abdominal Pain/Female - HPI Summary HPI Summary: This patient is an otherwise healthy 33-year-old female presenting to the ED with concern for constipation. She states her last bowel movement was yesterday , however she is endorsing a large "mass" to her rectum. She states this is a large amount of stool and she is unable to push it out. She is requesting an enema. She states she tried an enema at home without relief. She denies any abdominal pain otherwise, but is endorsing severe pain to the rectum. No rectal bleeding, melena or hematochezia. She states she has had some complications with constipation in the past, however none this severe. - History of Current Complaint Chief Complaint: EDConstipation Stated Complaint: CONSTIPATED PER PT Time Seen by Provider: 05/26/19 10:56 Hx Obtained From: Patient Hx Last Menstrual Period: July 08 ?: No Onset/Duration: Sudden Onset Timing: Constant Severity Initially: Severe Severity Currently: Severe Pain Intensity: 0 Pain Scale Used: 0-10 Numeric Radiates: No Aggravating Factor(s): Nothing Alleviating Factor(s): Nothing Associated Signs and Symptoms: Positive: Constipation - Risk Factors Ectopic Risk Factor: Negative Ovarian Torsion Risk Factor: Negative Allergies/Adverse Reactions: Allergies Allergy/AdvReac Type Severity Reaction Status Date / Time No Known Allergies Allergy Verified 07/31/18 08:35 PMH/Surg Hx/FS Hx/Imm Hx Previously Healthy: Yes Endocrine/Hematology History: Denies: Hx Anticoagulant Therapy, Hx Blood Disorders, Hx Diabetes, Hx Thyroid Disease Cardiovascular History: Denies: Hx Hypertension, Hx Pacemaker/ICD, Other Cardiovascular Problems/ Disorders Respiratory History: Denies: Hx Asthma, Hx Chronic Obstructive Pulmonary Disease (COPD), Other Respiratory Problems/Disorders GI History: Denies: Hx Ulcer, Other GI Disorders History: Denies: Hx Renal Disease Musculoskeletal History: Denies: Other Musculoskeletal History Sensory History: Denies: Hx Contacts or Glasses, Hx Hearing Aid Opthamlomology History: Denies: Hx Contacts or Glasses Neurological History: Denies: Other Neuro Impairments/Disorders Psychiatric History: Reports: Hx Depression - no meds Denies: Hx Panic Disorder - Surgical History Surgery Procedure, Year, and Place: D&C. left ACL repair Apr 2018 Hx Anesthesia Reactions: No - Immunization History Hx Pertussis Vaccination: No Immunizations Up to Date: Yes Infectious Disease History: No Infectious Disease History: Denies: Hx Hepatitis, Hx Human Immunodeficiency Virus (HIV), Traveled Outside the [place] in Last 30 Days - Family History Known Family History: Positive: Hypertension - sister, Diabetes - sister - Social History Occupation: Employed Full-time Lives: With Family Alcohol Use: Occasionally Alcohol Amount: Holidays primarily Hx Substance Use: No Substance Use Type: Reports: None Hx Tobacco Use: No Smoking Status (MU): Never Smoked Tobacco Review of Systems Negative: Fever, Chills, Fatigue, Skin Diaphoresis Negative: Palpitations, Chest Pain Negative: Shortness Of Breath, Cough Positive: Abdominal Pain - pain in rectum Genitourinary: Negative Positive: no symptoms reported, see HPI Negative: Arthralgia, Myalgia Negative: Rash, Bruising Neurological: Negative All Other Systems Reviewed And Are Negative: Yes Physical Exam Triage Information Reviewed: Yes Vital Signs On Initial Exam: Initial Vitals Temp Pulse Resp BP Pulse Ox 98.4 F 95 16 134/82 98 05/26/19 09:24 05/26/19 09:24 05/26/19 09:24 05/26/19 09:24 05/26/19 09:24 Vital Signs Reviewed: Yes Appearance: Positive: Well-Appearing, Well-Nourished Skin: Positive: Warm, Skin Color Reflects Adequate Perfusion Head/Face: Positive: Normal Head/Face Inspection Eyes: Positive: EOMI, FRANCISCO JAVIER, Conjunctiva Clear Neck: Positive: Supple, No Lymphadenopathy Respiratory/Lung Sounds: Positive: Clear to Auscultation, Breath Sounds Present Cardiovascular: Positive: RRR, Pulses are Symmetrical in both Upper and Lower Extremities Abdomen Description: Positive: Other: - constipation Bowel Sounds: Positive: Hyperactive Musculoskeletal: Positive: Normal, Strength/ROM Intact Neurological: Positive: Speech Normal Psychiatric: Positive: Affect/Mood Appropriate Procedures - Sedation Patient Received Moderate/Deep Sedation with Procedure: No Diagnostics - Vital Signs Vital Signs Temp Pulse Resp BP Pulse Ox 05/26/19 13:52 97.3 F 78 18 113/84 99 05/26/19 09:24 98.4 F 95 16 134/82 98 - Laboratory Lab Statement: Any lab studies that have been ordered have been reviewed, and results considered in the medical decision making process. Abdominal Pain Fem Course/Dx - Course Course Of Treatment: Patient is not having any abdominal pain on physical examination. X-ray obtained which shows a moderate to large amount of stool in the rectal vault. She states the rectum is where she is having pain to the large amount of stool. Discussed treatment options with the patient. Patient prefers to have a soapsuds enema as opposed to oral medications. A soapsuds enema was given, this with good effect. Large amount of stool was obtained. Pt feels improved. - Diagnoses Differential Diagnosis: Positive: Constipation, Other - impaction Provider Diagnoses: Constipation Discharge ED - Sign-Out/Discharge Documenting (check all that apply): Patient Departure - Discharge Plan Condition: Stable Disposition: HOME Patient Education Materials: Constipation (ED) Referrals: Ingris Brady MD [Primary Care Provider] - Additional Instructions: Stool softeners over the counter as needed - Billing Disposition and Condition Condition: STABLE Disposition: Home
== END 2019-05-26 13:52 | disposition home or self-care (01) ==
LOC: ED 09:23
DX: K59.00 Constipation, unspecified (principal); F32.9 Major depressive disorder, single episode, unspecified
CPT/HCPCS: 74018; 99284